=== PATIENT | male | born 1950 | race African-American/Black ===

== ENCOUNTER 2023-04-28 15:42 | Inpatient (IN) | payer MEDICARE, MEDICAID ==
[~2023-04-28] VITALS: Ht 175.3 cm; Wt 61.1 kg
[2023-04-28 16:28] VITALS: PULSE 73; RESP 16; O2SAT 97
[2023-04-28 16:32] LABS: Basophils # (auto) 0.2 10 ^3/uL (0-0.2); Basophils % (auto) 2.4 % (0.0-2.0); Eosinophils # (auto) 0.1 10 ^3/uL (0-0.8); Hematocrit 44.7 % (41.0-53.0); Lymphocytes # (auto) 2.5 10 ^3/uL (0.4-5.4); Lymphocytes % (auto) 37.3 % (10.0-50.0); Mean Corpuscular Hemoglobin 30.4 pg (28.0-32.0); Mean Corpuscular Hgb Conc. 33.4 g/dL (32.0-36.0); Mean Corpuscular Volume 91.1 fL (80.0-100.0); Monocytes # (auto) 0.9 10 ^3/uL (0-1.3); Monocytes % (auto) 13.5 % (0.0-12.0); Neutrophils % (auto) 45.8 % (37.0-80.0); Nucleated Red Blood Cells % 0.2 %; Red Blood Cells 4.91 10^6/uL (4.5-5.90); Red Cell Distribution Width 14.8 % (11.8-14.3); White Blood Cell 6.6 10^3/uL (4.4-10.8)
[2023-04-28 16:48] LABS: INR 1.17 (0.9-1.15); Partial Thromboplastin Time 26.9 SEC (24.5-34.5)
[2023-04-28 17:09] LABS: Albumin 3.6 g/dL (3.4-5.0); Calcium 8.3 mg/dL (8.5-10.1); Magnesium 2.1 mg/dL (1.6-2.6); Potassium 3.5 mmol/L (3.5-5.1)
[2023-04-28 17:11] LABS: BUN/Creatinine Ratio 12.8 (10.0-20.0); Bilirubin, Total 0.6 mg/dL (0.2-1.0)
[2023-04-28 19:35] VITALS: PULSE 60; RESP 15; O2SAT 95
[2023-04-29] MEDS ORDERED: ACETAMINOPHEN 325 MG TAB PO PRN (01:45)
[2023-04-29] MEDS ORDERED: HYDROcodone-ACET 5/325MG TAB PO PRN ×2 (01:45→15:15)
[2023-04-29] MEDS ORDERED: ONDANSETRON HCL 4 MG/2 ML VIAL IV PRN (01:45)
[2023-04-29] MEDS ORDERED: hydrALAZINE HCL 20 MG/ML VL IV PRN (01:45)
[2023-04-29 07:30] VITALS: PULSE 56; RESP 18; O2SAT 95
[2023-04-29] MEDS ORDERED: LISINOPRIL 5 MG TAB PO SCH (10:00)
[2023-04-29] MEDS ORDERED: amLODIPine BESYLATE 5 MG TAB PO ONE (13:00)
[2023-04-29] MEDS ORDERED: CALCIUM ACETATE 667 MG CAP PO ONE (13:15)
[2023-04-29 13:45] VITALS: PULSE 70; RESP 14; O2SAT 95
[2023-04-29] MEDS ORDERED: LORazepam 2MG/ML-1ML VIAL IV ONE (15:15)
[2023-04-29] MEDS ORDERED: ACETAMINOPHEN 500 MG TAB PO PRN (15:15)
[2023-04-29 18:34] VITALS: BP 126/66; PULSE 57; RESP 16; TEMP 98.1; O2SAT 98
[2023-04-29] MEDS ORDERED: LORazepam 2MG/ML-1ML VIAL IV PRN (21:30)
[2023-04-29 21:47] LABS: Cholesterol 189 mg/dL (< 200); HDL Cholesterol 73 mg/dL (40-59); LDL Cholesterol 106 mg/dL (< 100); Triglycerides 67 mg/dL (< 150)
[2023-04-29 22:00] VITALS: BP 123/67; PULSE 70; RESP 16; TEMP 98.2; O2SAT 99
[2023-04-29] MEDS: ATORVASTATIN 20 MG TAB PO SCH (22:24)
[2023-04-30 05:00] VITALS: BP 131/67; PULSE 81; RESP 14; TEMP 98.1; O2SAT 99
[2023-04-30 09:00] VITALS: BP 146/85; PULSE 72; RESP 18; TEMP 98.2; O2SAT 97
[2023-04-30 09:23] LABS: BUN/Creatinine Ratio 14.1 (10.0-20.0); Calcium 8.4 mg/dL (8.5-10.1); Potassium 3.7 mmol/L (3.5-5.1)
[2023-04-30] MEDS: ASPirin 81 mg TAB PO SCH (09:35)
[2023-04-30] MEDS: FOLIC ACID 1 MG TAB PO SCH (09:35)
[2023-04-30] MEDS: amLODIPine BESYLATE 5 MG TAB PO SCH (09:35)
[2023-04-30] MEDS: THIAMINE 100mg/ml INJ (200mg/2ml VIAL) IV SCH (09:36)
[2023-04-30 12:56] VITALS: BP 145/77; PULSE 61; RESP 18; TEMP 98.1; O2SAT 98
[2023-04-30 17:00] VITALS: BP 120/73; PULSE 68; RESP 18; TEMP 98; O2SAT 100
[2023-04-30 22:00] VITALS: BP 123/74; PULSE 67; RESP 14; TEMP 98; O2SAT 98
[2023-04-30] MEDS: ATORVASTATIN 20 MG TAB PO SCH (22:06)
[2023-05-01 05:00] VITALS: BP 130/70; PULSE 64; RESP 14; TEMP 98; O2SAT 99
[2023-05-01 06:25] LABS: Basophils # (auto) 0.1 10 ^3/uL (0-0.2); Basophils % (auto) 0.8 % (0.0-2.0); Eosinophils # (auto) 0.1 10 ^3/uL (0-0.8); Eosinophils % (auto) 1.4 % (0.0-7.0); Hematocrit 43.9 % (41.0-53.0); Hemoglobin 14.8 g/dL (13.5-17.5); Lymphocytes # (auto) 2.5 10 ^3/uL (0.4-5.4); Lymphocytes % (auto) 33.6 % (10.0-50.0); Mean Corpuscular Hgb Conc. 33.8 g/dL (32.0-36.0); Mean Corpuscular Volume 91.7 fL (80.0-100.0); Monocytes # (auto) 0.9 10 ^3/uL (0-1.3); Monocytes % (auto) 12.1 % (0.0-12.0); Neutrophils # (auto) 3.8 10 ^3/uL (1.6-8.6); Neutrophils % (auto) 52.1 % (37.0-80.0); Nucleated Red Blood Cells % 0.1 %; Red Blood Cells 4.79 10^6/uL (4.5-5.90); White Blood Cell 7.3 10^3/uL (4.4-10.8)
[2023-05-01 08:50] VITALS: BP 136/68; PULSE 59; RESP 14; TEMP 98; O2SAT 99
[2023-05-01] MEDS: THIAMINE 100mg/ml INJ (200mg/2ml VIAL) IV SCH (09:38)
[2023-05-01] MEDS: FOLIC ACID 1 MG TAB PO SCH (09:38)
[2023-05-01] MEDS: ASPirin 81 mg TAB PO SCH (09:39)
[2023-05-01] MEDS: amLODIPine BESYLATE 5 MG TAB PO SCH (09:39)
[2023-05-01 12:58] VITALS: BP 122/68; PULSE 87; RESP 16; TEMP 97.8; O2SAT 98
[2023-05-01 16:39] LABS: Urine Bacteria NONE SEEN /hpf (None Seen); Urine Blood TRACE /uL (Negative); Urine Mucus FEW (None Seen); Urine Specific Gravity 1.032 (1.001-1.035); Urine WBC 1 /hpf (0 - 3)
[2023-05-01 17:00] VITALS: BP 132/71; PULSE 77; RESP 16; TEMP 97.7; O2SAT 98
[2023-05-01 20:00] VITALS: PULSE 67; RESP 16; O2SAT 98
[2023-05-01 22:00] VITALS: BP 118/65; PULSE 67; RESP 16; TEMP 98; O2SAT 98
[2023-05-01] MEDS: ATORVASTATIN 20 MG TAB PO SCH (22:00)
[2023-05-02 05:00] VITALS: BP 112/57; PULSE 70; RESP 16; TEMP 97.8; O2SAT 97
[2023-05-02 06:26] LABS: Calcium 8.5 mg/dL (8.5-10.1); Potassium 3.9 mmol/L (3.5-5.1)
[2023-05-02 08:30] VITALS: PULSE 62; RESP 14; O2SAT 98
[2023-05-02 08:57] VITALS: BP 132/52; PULSE 56; RESP 18; TEMP 97.3; O2SAT 100
[2023-05-02] MEDS ORDERED: ATOR20TA50 PO (09:43)
[2023-05-02] MEDS ORDERED: TRAM50TA2 PO (09:43)
[2023-05-02] MEDS ORDERED: ASPI-325 PO (09:43)
[2023-05-02] MEDS ORDERED: AML5T PO (09:43)
[2023-05-02] MEDS: ASPirin 81 mg TAB PO SCH (11:03)
[2023-05-02] MEDS: FOLIC ACID 1 MG TAB PO SCH (11:03)
[2023-05-02] MEDS: THIAMINE 100mg/ml INJ (200mg/2ml VIAL) IV SCH (11:03)
[2023-05-02] MEDS: amLODIPine BESYLATE 5 MG TAB PO SCH (11:04)
[2023-05-02 11:29] VITALS: BP 140/76; PULSE 56; RESP 18; TEMP 97.3; O2SAT 100
[2023-05-02 13:28] VITALS: BP 131/73; PULSE 91; RESP 18; TEMP 98.3; O2SAT 96
[2023-05-02 17:02] VITALS: BP 108/53; PULSE 71; RESP 16; TEMP 98.2; O2SAT 97
== END 2023-05-02 18:30 | disposition home health service (06) | DRG 66 ==
LOC: ER 15:42 → OVERFLOW 04-29 01:41 → CENTRAL 04-29 18:27
PROVIDERS: ADMIT Internal Medicine; ATTEND Student in an Organized Health Care Education/Training Program
PROC: 4A00X4Z Measurement of Central Nervous Electrical Activity, External Approach (ICD-10-PCS; principal; 2023-05-01)
DX: I63.9 Cerebral infarction, unspecified (principal); R62.7 Adult failure to thrive; I10 Essential (primary) hypertension; E83.51 Hypocalcemia; M19.90 Unspecified osteoarthritis, unspecified site; F03.90 Unspecified dementia, unspecified severity, without behavioral disturbance, psychotic disturbance, mood disturbance, and anxiety; F17.200 Nicotine dependence, unspecified, uncomplicated; G83.14 Monoplegia of lower limb affecting left nondominant side; Q05.9 Spina bifida, unspecified; Z79.899 Other long term (current) drug therapy; Z79.82 Long term (current) use of aspirin; Z71.6 Tobacco abuse counseling
CPT/HCPCS: 36415; 70450; 70496; 71045; 72192; 73700; 80048; 80053; 80061; 81001; 82607; 82962; 83735; 84443; 85025; 85610; 85730; 93005; 93306; 93886; 95819; 97110; 97116; 97163; 97530; G0378

== ENCOUNTER 2023-12-05 16:09 | Inpatient (IN) | payer MEDICARE, MEDICAID ==
[~2023-12-05] VITALS: Ht 175.3 cm; Wt 58.9 kg
[~2023-12-05 16:09] MED LIST: AML5T PO; ASPI-325 PO; ATOR20TA50 PO; TRAM50TA2 PO
[2023-12-05 17:00] VITALS: PULSE 68; RESP 12; O2SAT 97
[2023-12-05] MEDS: SODIUM CHLORIDE 0.9% 1,000 ML IV ONE ×2 (17:02→18:13)
[2023-12-05 17:04] LABS: Basophils # (auto) 0.1 10 ^3/uL (0-0.2); Basophils % (auto) 0.9 % (0.0-2.0); Eosinophils # (auto) 0.1 10 ^3/uL (0-0.8); Eosinophils % (auto) 0.8 % (0.0-7.0); Hematocrit 40.9 % (41.0-53.0); Hemoglobin 13.4 g/dL (13.5-17.5); Lymphocytes % (auto) 36.7 % (10.0-50.0); Mean Corpuscular Hemoglobin 30.1 pg (28.0-32.0); Mean Corpuscular Hgb Conc. 32.7 g/dL (32.0-36.0); Mean Corpuscular Volume 91.9 fL (80.0-100.0); Monocytes # (auto) 0.9 10 ^3/uL (0-1.3); Monocytes % (auto) 10.8 % (0.0-12.0); Neutrophils # (auto) 4.2 10 ^3/uL (1.6-8.6); Neutrophils % (auto) 50.8 % (37.0-80.0); Red Blood Cells 4.45 10^6/uL (4.5-5.90); Red Cell Distribution Width 15.8 % (11.8-14.3); White Blood Cell 8.2 10^3/uL (4.4-10.8)
[2023-12-05 17:20] LABS: Alanine Aminotransferase 47 U/L (7-40); Albumin 3.8 g/dL (3.2-4.8); Alkaline Phosphatase 98 U/L (46-116); Anion Gap 5 (5-15); Aspartate Aminotransferase 32 U/L (13-40); BUN/Creatinine Ratio 17.9 (10.0-20.0); Bilirubin, Total 0.4 mg/dL (0.2-1.0); Blood Urea Nitrogen 17 mg/dL (9-23); Calcium 8.6 mg/dL (8.5-10.1); Carbon Dioxide 26 mmol/L (20-30); Chloride 110 mmol/L (98-107); Glucose 125 mg/dL (74-106); Potassium 3.6 mmol/L (3.5-5.1); Sodium 141 mmol/L (136-145); Total Protein 6.6 g/dL (5.7-8.2)
[2023-12-05 17:24] LABS: Lactic Acid w/Reflex 3.2 mmol/L (0.4-2.0)
[2023-12-05] MEDS: PIPERACILLIN-TAZOB 3.375GM 100 ML IV ONE (18:13)
[2023-12-05 19:30] VITALS: PULSE 78; RESP 18; O2SAT 98
[2023-12-05 19:52] LABS: Urine Bacteria NONE SEEN /hpf (None Seen); Urine Blood Negative /uL (Negative); Urine Clarity Clear (Clear); Urine Color Colorless (Yellow); Urine Mucus FEW (None Seen); Urine Protein, UAD Negative (Negative); Urine Urobilinogen Normal (Negative); Urine WBC 1 /hpf (0 - 3)
[2023-12-05] MEDS ORDERED: hydrALAZINE HCL 20 MG/ML VL IV PRN (23:15)
[2023-12-05] MEDS ORDERED: ACETAMINOPHEN 325 MG TAB PO PRN (23:15)
[2023-12-05] MEDS ORDERED: ONDANSETRON HCL 4 MG/2 ML VIAL IV PRN (23:15)
[2023-12-05] MEDS ORDERED: DOCUSATE SOD 100 MG CAP PO PRN (23:15)
[2023-12-05] MEDS: SODIUM CHLORIDE 0.9% 1,000 ML IV SCH (23:38)
[2023-12-06] VITALS (9 sets, daily range): BP systolic 123–152; BP diastolic 58–105; PULSE 60–107; RESP 16–20; TEMP 97.8–98.3; O2SAT 95–100
[2023-12-06] MEDS ORDERED: NITROGLYCERIN 0.4 MG SL TAB SL PRN
[2023-12-06] MEDS ORDERED: MORPHINE SULFATE INJ 2 MG/ml SYRG IV PRN
[2023-12-06 06:07] LABS: Basophils # (auto) 0 10 ^3/uL (0-0.2); Basophils % (auto) 0.6 % (0.0-2.0); Eosinophils # (auto) 0 10 ^3/uL (0-0.8); Eosinophils % (auto) 0.3 % (0.0-7.0); Hematocrit 34.7 % (41.0-53.0); Hemoglobin 11.9 g/dL (13.5-17.5); Lymphocytes # (auto) 2.9 10 ^3/uL (0.4-5.4); Mean Corpuscular Hemoglobin 31.1 pg (28.0-32.0); Mean Corpuscular Hgb Conc. 34.4 g/dL (32.0-36.0); Mean Corpuscular Volume 90.4 fL (80.0-100.0); Monocytes # (auto) 1.1 10 ^3/uL (0-1.3); Monocytes % (auto) 13.9 % (0.0-12.0); Neutrophils # (auto) 4.1 10 ^3/uL (1.6-8.6); Neutrophils % (auto) 50.2 % (37.0-80.0); Nucleated Red Blood Cells % 0.1 %; Red Blood Cells 3.84 10^6/uL (4.5-5.90); Red Cell Distribution Width 15.8 % (11.8-14.3); White Blood Cell 8.2 10^3/uL (4.4-10.8)
[2023-12-06 06:18] LABS: Alanine Aminotransferase 37 U/L (7-40); Albumin 3.2 g/dL (3.2-4.8); Alkaline Phosphatase 78 U/L (46-116); Anion Gap 3 (5-15); Aspartate Aminotransferase 29 U/L (13-40); BUN/Creatinine Ratio 14.3 (10.0-20.0); Blood Urea Nitrogen 13 mg/dL (9-23); Calcium 8.2 mg/dL (8.7-10.4); Carbon Dioxide 26 mmol/L (20-30); Chloride 112 mmol/L (98-107); Glucose 89 mg/dL (74-106); Sodium 141 mmol/L (136-145)
[2023-12-06 06:19] LABS: Bilirubin, Total 0.5 mg/dL (0.2-1.0); Total Protein 6.1 g/dL (5.7-8.2)
[2023-12-06] MEDS: ASPirin 81 mg TAB PO SCH (09:55)
[2023-12-06 11:29] LABS: Thyroid Stimulating Hormone 0.8 uIU/mL (0.55-4.78)
[2023-12-06 11:47] LABS: % Iron Saturation 38.6 % (20-55)
[2023-12-06 12:00] LABS: Folate (Folic Acid) 9.37 ng/mL (>5.38)
[2023-12-06 12:17] LABS: INR 1.13 (0.9-1.15); Partial Thromboplastin Time 26.2 SEC (24.5-34.5); Prothrombin Time 11.8 sec (9.3-11.8)
[2023-12-06 12:30] LABS: Magnesium 1.5 mg/dL (1.6-2.6)
[2023-12-06] MEDS: ATORVASTATIN 20 MG TAB PO SCH (21:17)
[2023-12-06] MEDS ORDERED: LORazepam 2MG/ML-1ML VIAL IV PRN (22:30)
[2023-12-07] VITALS (7 sets, daily range): BP systolic 121–148; BP diastolic 45–79; PULSE 55–66; RESP 16–20; TEMP 97.7–98.5; O2SAT 90–100
[2023-12-07 07:56] LABS: Amphetamine Screen, Urine Neg (NEGATIVE); Barbiturate Scree,Urine Neg (NEGATIVE); Benzodiazephine Screen, Urine Neg (NEGATIVE); Cannabinoid Screen, Urine Neg (NEGATIVE); Cocaine Screen, Urine Neg (NEGATIVE); Opiate Scree,Urine Neg (NEGATIVE); Phencyclidine Screen, Urine Neg (NEGATIVE)
[2023-12-07] MEDS: HYDROcodone-ACET 5/325MG TAB PO PRN (10:29)
[2023-12-08] VITALS (7 sets, daily range): BP systolic 118–144; BP diastolic 45–88; PULSE 60–89; RESP 16–20; TEMP 97.7–98.4; O2SAT 95–100
[2023-12-08] MEDS: cefTRIAXone 1GM/50ML D5W 50 ML IV SCH (13:02)
[2023-12-09] VITALS (7 sets, daily range): BP systolic 115–143; BP diastolic 53–69; PULSE 70–117; RESP 16–18; TEMP 97.6–98.5; O2SAT 99–100
[2023-12-10] VITALS (7 sets, daily range): BP systolic 125–133; BP diastolic 56–70; PULSE 61–98; RESP 15–18; TEMP 97.6–98; O2SAT 98–100
[2023-12-11 05:00] VITALS: BP 122/68; PULSE 75; RESP 18; TEMP 98.4; O2SAT 99
[2023-12-11 08:00] VITALS: PULSE 85
[2023-12-11 08:10] VITALS: BP 136/94; PULSE 67; RESP 18; TEMP 98.7; O2SAT 97
[2023-12-11] MEDS ORDERED: LEVO500T91 PO (10:16)
[2023-12-11] MEDS ORDERED: DONEPEZIL HYDROCHLORIDE 5 MG TAB PO SCH (22:00)
== END 2023-12-11 13:26 | disposition home or self-care (01) | DRG 871 ==
LOC: EDUNIT# 16:09 → EDBD 16:09 → ER 16:09 → TELE-WESTW 12-06 → TELE 12-06 → TELE-WESTW 12-06 04:30
PROVIDERS: ADMIT Nurse Practitioner Family; ATTEND Family Medicine
DX: A41.9 Sepsis, unspecified organism (principal); I63.9 Cerebral infarction, unspecified; J18.9 Pneumonia, unspecified organism; G40.89 Other seizures; R29.6 Repeated falls; D64.9 Anemia, unspecified; R55 Syncope and collapse; E78.5 Hyperlipidemia, unspecified; G30.9 Alzheimer's disease, unspecified; F02.80 Dementia in other diseases classified elsewhere, unspecified severity, without behavioral disturbance, psychotic disturbance, mood disturbance, and anxiety; Z91.81 History of falling; Z87.891 Personal history of nicotine dependence; Z86.73 Personal history of transient ischemic attack (TIA), and cerebral infarction without residual deficits; Z79.899 Other long term (current) drug therapy
CPT/HCPCS: 36415; 70450; 71045; 80053; 80061; 80307; 81001; 82306; 82607; 82746; 83036; 83540; 83550; 83605; 83615; 83735; 84443; 84484; 85025; 85045; 85610; 85730; 87040; 87086; 93005; 93886; 95819; 97110; 97116; 97163; 97530; G0378; J2543